=== PATIENT | male | born 1970 | race Caucasian/White ===

== ENCOUNTER 2020-08-29 12:30 | Outpatient (CLI) | payer BC ==
--- NOTE | 2020-08-29 14:17 | RAD ---
CERVICAL SPINE SERIES THREE VIEWS: 08/29/20 HISTORY: Follow-up surgery. The patient is undergoing anterior cervical fusion with plate and screws extending from C5 to C7. Mar kers of disc implants are within the intervening disc levels. Disc narrowing is seen at C7-T1. IMPRESSION: Postop changes of the cervical spine with minimal soft tissue swelling noted. POS: [facility]
== END 2020-08-29 12:31 | disposition home or self-care (01) ==
LOC: TBSIIMAG 12:30
PROVIDERS: ATTEND Neurological Surgery
DX: M54.12 Radiculopathy, cervical region (principal); M79.89 Other specified soft tissue disorders; Z98.890 Other specified postprocedural states
CPT/HCPCS: 72040